=== PATIENT | male | born 1965 | race Caucasian/White ===

== ENCOUNTER 2017-05-13 09:55 | Emergency (ER) | payer OTHER ==
[~2017-05-13] VITALS: Ht 154.9 cm; Wt 169.0 kg
[~2017-05-13 09:55] MED LIST: BACTRIM,SEPT1 TABLET PO; BALANCED B COM1 EAC2 PO; BIOTIN800 MCG PO; CLARITIN,ALAVAR10 MG PO; CLONAZEPAM2 MG PO; COMBIVENT RESPIM4 GM IH; COUMADIN2 MG PO; COUMADIN5 MG PO; COUMADIN6 MG PO; DOLOPHINE HCL5 MG PO; EFFEXOR XR150 MG PO; FLONASE16 G1 BOTH NARES; FOLIC ACID1 MG PO; IMURAN50 MG PO; IRON325 M1 PO; IRON325 MG PO; KEFLEX500 MG PO; KETOCONAZOLE120 ML TP; KLONOPIN1 MG PO; LEVAQUIN500 MG PO; LOPID600 MG PO; LOTRISONE15 GM TP; MEDROL DOSEPAK4 MG PO; METHADONE10 MG PO; METHADONE5 MG PO; NAPROSYN500 MG PO; NEPHROCAPS SOFTG1 MG PO; NEURONTIN400 MG PO; NEURONTIN600 MG PO; NEURONTIN800 MG PO; NORVASC5 MG PO; OMEGA-3 FISH O1 EAC3 PO; OMEGA-3 FISH O1 EAC5 PO; OMEGA-3 KRILL1 EAC3 PO; OMEPRAZOLE40 M1 PO; PATANOL OP100 DROP/5 BOTH EYES; PRADAXA150 MG PO; PREDNISONE10 MG PO; PRINIVIL10 MG PO; PROAIR HFA8.5 GM IH; SKELAXIN800 MG PO; TUDORZA PRESS400 MCG IH; VENTOLIN HFA18 GM IH; VITAMIN D31000 UNI2 PO; ZITHROMAX250 MG PO; ZOFRAN4 MG PO
[2017-05-13] MEDS ORDERED: FIORICET 50-301 EACH PO (12:30)
[2017-05-13 12:51] VITALS: BP 133/63
== END 2017-05-13 12:52 | disposition home or self-care (01) ==
LOC: EME 09:55
DX: S00.03XA Contusion of scalp, initial encounter (principal); W20.8XXA Other cause of strike by thrown, projected or falling object, initial encounter; E66.01 Morbid (severe) obesity due to excess calories; I10 Essential (primary) hypertension; Z86.711 Personal history of pulmonary embolism; Z79.01 Long term (current) use of anticoagulants
CPT/HCPCS: 70450; 99281; 99283

== ENCOUNTER → 2017-05-17 | Outpatient (CLI) | payer MEDICARE, OTHER ==
[~2017-05-17] MED LIST changes: +FIORICET 50-301 EACH PO
== END | disposition home or self-care (01) ==
LOC: CDC 14:00
DX: I45.4 Nonspecific intraventricular block (principal); R94.31 Abnormal electrocardiogram [ECG] [EKG]
CPT/HCPCS: 93000